=== PATIENT | male | born 1980 | race Caucasian/White ===

== ENCOUNTER 2017-11-02 15:11 | Inpatient (IN) | payer BC ==
[2017-11-02] MEDS ORDERED: Sodium Chloride 0.9% 1,000 ML IV ONE (15:53)
--- NOTE | 2017-11-02 15:53 | ED Physician Chart ---
ED Chief Complaint/HPI - Patient Information Date Seen:: 11/02/17 Time Seen:: 15:25 Chief Complaint:: Fever History of Present Illness:: onset x 2 days of fever, N/V/D x 9; pt denies trauma, H/As, S/T, neck pain, C/P , SOB, cough, Abd. Pain, A/C, chills, or urinary s/s Allergies:: Allergies Allergy/AdvReac Type Severity Reaction Status Date / Time No Known Allergies Allergy Verified 11/02/17 15:34 Vitals:: Vital Signs - 8 hr 11/02/17 15:28 Temp 100.7 F HR 133 RR 16 BP 109/57 O2 Sat % 97 Historian:: Patient Review:: Nurse's Note Reviewed ED Review of Systems - Review of Systems General/Constitutional: Fever, No chills, No weight loss, No weakness, No diaphoresis, No edema, No loss of appetite Skin: No skin lesions, No rash, No bruising Head: No headache, No light-headedness Eyes: No loss of vision, No pain, No diplopia ENT: No earache, No nasal drainage, No sore throat, No tinnitus Neck: No neck pain, No swelling, No thyromegaly, No stiffness, No mass noted Cardio Vascular: No chest pain, No palpitations, No PND, No orthopnea, No edema Pulmonary: No SOB, No cough, No sputum, No wheezing GI: Nausea, Vomiting, Diarrhea, No pain, No melena, No hematochezia, No constipation, No hematemesis G/U: No dysuria, No frequency, No hematuria, No nacturia Musculoskeletal: No bone or joint pain, No back pain, No muscle pain Endocrine: No polyuria, No polydipsia Psychiatric: No prior psych history, No depression, No anxiety, No suicidal ideation, No homicidal ideation, No auditory hallucination, No visual hallucination Hematopoietic: No bruising, No lymphadenopathy Allergic/Immuno: No urticaria, No angioedema Neurological: No syncope, No focal symptoms, No weakness, No paresthesia, No headache, No seizure, No dizziness, No confusion, No vertigo ED Past Medical History - Past Medical History Obtainable: Yes Past Medical History: No significant medical hx Family History: None Social History: Non Smoker, No Alcohol, No Drug Use, Single Surgical History: None Psychiatricy History: None Medication: Reviewed Family Medical History - Family Member Mother History Unknown: Yes ED Physical Exam - Physical Examination General/Constitutional: Awake, Well-developed, well-nourished, Alert, No distress, GCS 15, Non-toxic appearing, Ambulatory Head: Atraumatic Eyes: Lids, conjuctiva normal, PERRL, EOMI Skin: Nl inspection, No rash, No skin lesions, No ecchymosis, Well hydrated, No lymphadenopathy ENMT: External ears, nose nl, TM canals nl, Nasal exam nl, Lips, teeth, gums nl , Oropharynx nl, Tonsils nl Neck: Nontender, Full ROM w/o pain, No JVD, No nuchal rigidity, No bruit, No mass, No stridor Other Neck comments:: supple; no meningeal signs; no cervical tenderness; no bruits Respiratory: Nl effort/Exclusion, Clear to Auscultation, No Wheeze/Rhonchi/Rales Cardio Vascular: RRR, No murmur, gallop, rubs, NL S1 S2, Carotid/Femoral/Distal pulses equal bilaterally GI: No tenderness/rebounding/guarding, No organomegaly, No hernia, Normal BS's, Nondistended, No mass/bruits, No McBurney tenderness, Rectum exam nl Other GI comments:: no pulsatile masses : No CVA tenderness Extremities: No tenderness or effusion, Full ROM, normal strength in all extremities, No edema, Normal digits & nails Neuro/Psych: Alert/oriented, DTR's symmetric, Normal sensory exam, Normal motor strength, Judgement/insight normal, Mood normal, Normal gait, No focal deficits Misc: Normal back, No paraspinal tenderness ED Labs/Radiology/EKG Results - Lab Results Comments:: WBC: 16.6; Na+: 127; BUN: 32; U/A: + Blood; + WBCs/RBCs - Radiology Results Comments:: Hepatomegaly; Splenomegaly; Distended GB; R/O: Appendicitis ED Septic Shock - . Is Septic Shock (SBP<90, OR Lactate>4 mmol\L) present?: No - <6hrs of presentation: Vital Signs: Vital Signs - 8 hr 11/02/18 15:28 Temp 100.7 F HR 133 RR 16 BP 109/57 O2 Sat % 97 ED Reassessment (Disposition) - Reassessment Reassessment Condition:: Improved - Diagnosis Diagnosis:: Dx: N/V/D; AGE; UTI; Hematuria; Hyponatremia; Leukocytosis; Dehydration; R/O: Appendicitis; Cholithiasis; Nephrolithiasis - Aftercare/Follow up Instructions Aftercare/Follow-Up Instructions:: Counseled pt regarding lab results/diagnosis & need follow up, Counseled pt & family regarding lab results/diagnosis & need follow up - Patient Disposition Discharge/Transfer:: Acute Care w/in this hosp Accepting Physician:: Dr. Corona Time Called:: 0119 Time Responded:: 17:15 Admitted to:: Med/Surg Spoke to:: Dr. Corona Admitting Medical Physician:: Dr. Corona Condition at Disposition:: Stable, Improved
[2017-11-02 16:11] LABS: EOSINOPHILE ABSOLUTE 0.1 Th/cmm (0.1-0.4); HEMATOCRIT 48.4 % (41.0-60); HEMOGLOBIN 16.6 gm/dL (12-16); LYMPHOCYTE ABSOLUTE 0.4 Th/cmm (1.5-3.0); MANUAL DIFF REQUIRED? YES; MEAN CELL VOLUME 91.7 fl (80-99); MEAN CORPUSCULAR HEMOGLOBIN 31.6 pg (26.0-30.0); MEAN CORPUSCULAR HGB CONC 34.4 pg (28.0-36.0); MEAN PLATELET VOLUME 7.7 fl; MONOCYTE ABSOLUTE 0.2 Th/cmm (0.3-1.0); NEUTROPHILE ABSOLUTE 15.9 Th/cmm (1.8-8.0); PLATELET COUNT 231 Th/cmm (150-400); RED BLOOD COUNT 5.27 Mil/cmm (4.30-5.70); RED CELL DISTRIBUTION WIDTH 12.1 % (11.5-20.0)
[2017-11-02 16:19] LABS: URINE MICROSCOPIC INDICATED? YES; URINE SOURCE CLEAN C
[2017-11-02 16:20] LABS: WHITE BLOOD COUNT 16.6 Th/cmm (4.8-10.8)
[2017-11-02 16:31] LABS: AMYLASE SERUM 23 U/L (29-103); BUN - UREA NITROGEN 32 mg/dL (7-25); CALCIUM SERUM 9.5 mg/dL (8.6-10.3); CARBON DIOXIDE 18.8 mEq/L (21.0-31.0); CHLORIDE 97 mEq/L (98-107); CREATININE - SERUM 1.2 mg/dL (0.7-1.3); GFR AFRICAN-AMERICAN > 60.0 ml/min (>90); GFR NON AFRICAN-AMERICAN > 60.0 ml/min; GLUCOSE 126 mg/dL (70-105); LIPASE 5 U/L (11-82); POTASSIUM SERUM 3.8 mEq/L (3.5-5.1); SODIUM SERUM 127 mEq/L (136-145)
[2017-11-02 16:39] LABS: URINE BILIRUBIN NEGATIVE (NEGATIVE); URINE BLOOD MODERATE (NEGATIVE); URINE GLUCOSE (UA) NEGATIVE (NEGATIVE); URINE KETONE TRACE mg/dL (NEGATIVE); URINE LEUKOCYTE ESTERASE NEGATIVE (NEGATIVE); URINE NITRATE NEGATIVE (NEGATIVE); URINE PROTEIN 100 mg/dL (NEGATIVE); URINE UROBILINOGEN 0.2 E.U./dL (0.2 - 1.0)
[2017-11-02 16:41] LABS: URINE CLARITY HAZY (CLEAR); URINE COLOR ORANGE
[2017-11-02 16:43] LABS: URINE BACTERIA NONE SEEN /hpf (NONE SEEN); URINE EPITHELIAL CELLS FEW /lpf (FEW)
[2017-11-02] MEDS ORDERED: cefTRIAXone 1 GM in Sodium Chloride 0.9% 50 ML IV ONE (17:16)
[2017-11-02 17:41] LABS: BAND NEUTROPHILE 36 % (0-10); BASOPHIL 0 % (0-3); EOSINOPHIL 0 % (0-5); LYMPHOCYTE 2 % (20-50); MONOCYTE 2 % (2-10); NEUTROPHILS 60 % (40-80); PLATELET ESTIMATE ADEQUATE (NORMAL); PLATELET MORPHOLOGY NORMAL (NORMAL); TOTAL CELLS COUNTED 100
[2017-11-02] MEDS ORDERED: Sodium Chloride 0.9% 1,000 ML IV SCH (20:15)
[2017-11-03 05:31] VITALS: BP 134/71
--- NOTE | 2017-11-03 08:57 | General Progress Note ---
Subjective - Review of Systems Service Date: 11/03/17 Events since last encounter: claims he came in for flu-like symptoms over 2 days, denies abdominal pain labs noted CT scan report raises question of GB stone US ordered Objective - Results Result Diagrams: 11/02/17 15:45 11/02/17 15:45 Recent Labs: Laboratory Last Values WBC 16.6 Th/cmm (4.8-10.8) H 11/02/17 15:45 RBC 5.27 Mil/cmm (4.30-5.70) 11/02/17 15:45 Hgb 16.6 gm/dL (12-16) 11/02/17 15:45 Hct 48.4 % (41.0-60) 11/02/17 15:45 MCV 91.7 fl (80-99) 11/02/17 15:45 MCH 31.6 pg (26.0-30.0) H 11/02/17 15:45 MCHC Differential 34.4 pg (28.0-36.0) 11/02/17 15:45 RDW 12.1 % (11.5-20.0) 11/02/17 15:45 Plt Count 231 Th/cmm (150-400) 11/02/17 15:45 MPV 7.7 fl 11/02/17 15:45 Band Neutrophils % 36 % (0-10) H 11/02/17 15:45 Neutrophils (Manual) 60 % (40-80) 11/02/17 15:45 Lymphocytes 2 % (20-50) L 11/02/17 15:45 Monocytes 2 % (2-10) 11/02/17 15:45 Eosinophils 0 % (0-5) 11/02/17 15:45 Basophils 0 % (0-3) 11/02/17 15:45 Platelet Estimate ADEQUATE (NORMAL) 11/02/17 15:45 Platelet Morphology NORMAL (NORMAL) 11/02/17 15:45 RBC Morph Micro Appear NORMAL (NORMAL) 11/02/17 15:45 Sodium 127 mEq/L (136-145) L 11/02/17 15:45 Potassium 3.8 mEq/L (3.5-5.1) 11/02/17 15:45 Chloride 97 mEq/L (98-107) L 11/02/17 15:45 Carbon Dioxide 18.8 mEq/L (21.0-31.0) L 11/02/17 15:45 Anion Gap 15.0 (7.0-16.0) 11/02/17 15:45 BUN 32 mg/dL (7-25) H 11/02/17 15:45 Creatinine 1.2 mg/dL (0.7-1.3) 11/02/17 15:45 Est GFR ( Amer) > 60.0 ml/min (>90) 11/02/17 15:45 Est GFR (Non-Af Amer) > 60.0 ml/min 11/02/17 15:45 BUN/Creatinine Ratio 26.7 11/02/17 15:45 Glucose 126 mg/dL (70-105) H 11/02/17 15:45 Whole Bld Lactic Acid 1.40 mmol/L (0.60-1.99) 11/02/17 19:20 Calcium 9.5 mg/dL (8.6-10.3) 11/02/17 15:45 Amylase 23 U/L (29-103) L 11/02/17 15:45 Lipase 5 U/L (11-82) L 11/02/17 15:45 Urine Source CLEAN C 11/02/17 15:30 Urine Color ORANGE 11/02/17 15:30 Urine Clarity HAZY (CLEAR) 11/02/17 15:30 Urine pH 6.0 (4.6 - 8.0) 11/02/17 15:30 Ur Specific [place] 1.025 (1.005-1.030) 11/02/17 15:30 Urine Protein 100 mg/dL (NEGATIVE) H 11/02/17 15:30 Urine Glucose (UA) NEGATIVE mg/dL (NEGATIVE) 11/02/17 15:30 Urine Ketones TRACE mg/dL (NEGATIVE) 11/02/17 15:30 Urine Blood MODERATE (NEGATIVE) H 11/02/17 15:30 Urine Nitrate NEGATIVE (NEGATIVE) 11/02/17 15:30 Urine Bilirubin NEGATIVE (NEGATIVE) 11/02/17 15:30 Urine Urobilinogen 0.2 E.U./dL (0.2 - 1.0) 11/02/17 15:30 Ur Leukocyte Esterase NEGATIVE (NEGATIVE) 11/02/17 15:30 Urine RBC 2-5 /hpf (0-5) H 11/02/17 15:30 Urine WBC 2-5 /hpf (0-5) 11/02/17 15:30 Ur Epithelial Cells FEW /lpf (FEW) 11/02/17 15:30 Urine Bacteria NONE SEEN /hpf (NONE SEEN) 11/02/17 15:30 - Physical Exam Vitals and I&O: Vital Signs Temp 98.4 F 11/03/17 04:00 Pulse 85 11/03/17 04:00 Resp 21 11/03/17 04:00 BP 134/71 11/03/17 05:30 Pulse Ox 97 11/03/17 04:00 Intake & Output 11/02/17 11/03/17 11/03/17 18:59 06:59 18:59 Intake Total 2100 Balance 2100 Intake: Intake, IV Amount 2100 Sodium Chloride 0.9% 1, 1000 000 ml @ Wide Open IV . Q0M ONE Rx#:[id number] cefTRIAXone 1 gm In 50 Sodium Chloride 0.9% 50 ml @ 100 mls/hr IV X1 ONE Rx#:[id number] Active Medications: Current Medications Acetaminophen (Tylenol) 650 mg PO Q6H PRN PRN Reason: Fever > 100 Stop: 01/01/18 22:59 Last Admin: 11/02/17 23:19 Dose: 650 mg Ceftriaxone Sodium 1 gm/ (Sodium Chloride) 50 mls @ 100 mls/hr IV Q24HR YAIR Stop: 01/02/18 17:59 Sodium Chloride (Nacl 0.9%) 1,000 mls @ 125 mls/hr IV .Q8H YAIR Stop: 01/01/18 20:14 Last Admin: 11/02/17 23:20 Dose: 125 mls/hr
--- NOTE | 2017-11-03 08:57 | Diagnostic Imaging Report ---
Exam: CT examination abdomen pelvis. HISTORY: Abdominal pain vomiting Total DLP equals 347 CTDI equals 7.6 Findings: Multiple contiguous thin section of the abdomen pelvis obtained from lower thorax to pubic symphysis without the administration of oral or intravenous. No prior studies available comparison. The study demonstrates normal aeration of lung parenchyma the bases. There is evidence for hepatosplenomegaly. The kidneys demonstrate no evidence of obstructive uropathy or nephrolithiasis. The gallbladder is distended. No free fluid is noted. The appendix not visualized there is no evidence for secondary signs of appendicitis. Urinary bladder is distended. No free fluid appreciated. No abnormal adenopathy is noted. Moderate amount of fecal content is noted in the right colon. Several distended small bowel loops suggestive of mild ileus. Bony structures demonstrate no evidence for lytic or blastic changes. IMPRESSION: Somewhat limited examination without the administration of contrast material Mild ileus . No evidence of appendicitis, appendix is not seen. Distended gallbladder. Hepatosplenomegaly.
[2017-11-03 09:16] LABS: MANUAL DIFF REQUIRED? YES; MEAN CELL VOLUME 91.9 fl (80-99); MEAN CORPUSCULAR HEMOGLOBIN 31.3 pg (26.0-30.0); MEAN CORPUSCULAR HGB CONC 34.1 pg (28.0-36.0); MEAN PLATELET VOLUME 7.1 fl; PLATELET COUNT 201 Th/cmm (150-400); RED BLOOD COUNT 4.78 Mil/cmm (4.30-5.70); RED CELL DISTRIBUTION WIDTH 12.5 % (11.5-20.0)
[2017-11-03 09:28] LABS: ALB/GLOB RATIO 1.4 (1.0-1.8); ALBUMIN 3.6 gm/dL (4.2-5.5); ALKALINE PHOSPHATASE 72 U/L (34-104); ANION GAP 9.6 (7.0-16.0); BUN - UREA NITROGEN 19 mg/dL (7-25); CALCIUM SERUM 8.9 mg/dL (8.6-10.3); CARBON DIOXIDE 26.5 mEq/L (21.0-31.0); CHLORIDE 102 mEq/L (98-107); GFR AFRICAN-AMERICAN > 60.0 ml/min (>90); GFR NON AFRICAN-AMERICAN > 60.0 ml/min; GLUCOSE 116 mg/dL (70-105); POTASSIUM SERUM 4.1 mEq/L (3.5-5.1); SGOT 36 U/L (13-39); SGPT/ALT 71 U/L (7-52); SODIUM SERUM 134 mEq/L (136-145); TOTAL PROTEIN,SERUM 6.2 gm/dL (6.0-8.3)
[2017-11-03 09:31] LABS: WHITE BLOOD COUNT 11.1 Th/cmm (4.8-10.8)
[2017-11-03 09:59] LABS: BAND NEUTROPHILE 13 % (0-10); LYMPHOCYTE 10 % (20-50); MONOCYTE 2 % (2-10); NEUTROPHILS 75 % (40-80); PLATELET ESTIMATE ADEQUATE (NORMAL); TOTAL CELLS COUNTED 100
--- NOTE | 2017-11-03 10:07 | History and Physical ---
History of Present Illness - HPI Chief Complaint: Nausea and vomit x 3 days HPI: Patient refer that x 3 days he had nausea and vomit, felling tired and body pain. He came to ER for evaluation and treatment. In ER abdominal CT was done and showed No appendicitis, Distended gallblader and hepatomegaly. Vital Signs: Last Vital Signs Temp 98.4 F 11/03/17 04:00 Pulse 85 11/03/17 04:00 Resp 21 11/03/17 04:00 BP 134/71 11/03/17 05:30 Pulse Ox 97 11/03/17 04:00 Past Medical History Cardiovascular: Report: No Pertinent Hx Pulmonary: Report: No Pertinent Hx SAMPLES AND REPAIRS PREPARER: Report: No Pertinent Hx GI: Report: Other (Vomit and Diarrhea) Psych: Report: No Pertinent Hx Musculoskeletal: Report: No Pertinent Hx Rheumatologic: Report: No pertinent Hx Infectious Disease: Report: No Pertinent Hx Renal/: Report: No Pertinent Hx Endocrine: Report: No Pertinent Hx Dermatology: Report: No Pertinent Hx - Past Surgical History Past Surgical History: No pertinent Hx Family Medical History - Family Member Mother History Unknown: Yes Social History Smoke: No Alcohol: None Drugs: None Lives: With Family Domestic Violence: Negative - Medications Home Medications: Home Medication Medication Instructions Recorded Type NK [No Home Meds] 11/02/17 History - Allergies Allergies/Adverse Reactions: Allergies Allergy/AdvReac Type Severity Reaction Status Date / Time No Known Allergies Allergy Verified 11/02/17 15:34 Review of Systems - Review of Systems Constitutional: Report: Fever, Weakness Eyes: Report: No Significant ENT: Report: No Significant Respiratory: Report: No Significant Cardiovascular: Report: No Significant Gastrointestinal: Report: Nausea, Vomiting Genitourinary: Report: No Significant Musculoskeletal: Report: No Significant Skin: Report: No Significant Neurological: Report: No Significant Physical Exam - Physical Exam HEENT: Report: Ears Nose Throat within normal limits Neck: Report: Within normal limits Cardiovascular Systems: Report: Regular, Rate and Rhythm Respiratory: Report: Breath Sounds are within normal limits Abdomen: Report: Other (Tender at palpation, BS normal.) Back: Report: Inspection of back is within normal limits. Extremities: Report: Non-tender to palpation. Skin: Report: Color of skin is within normal limits Neuro/Psych: Report: Mood affect is within normal limits - Lab Results All Lab Results last 24 hours: Laboratory Results - last 24 hr 11/03/17 11/03/17 09:05 09:05 WBC 11.1 H D RBC 4.78 Hgb 15.0 Hct 44.0 MCV 91.9 MCH 31.3 H MCHC Differential 34.1 RDW 12.5 Plt Count 201 MPV 7.1 Band Neutrophils % 13 H Neutrophils (Manual) 75 Lymphocytes 10 L Monocytes 2 Platelet Estimate ADEQUATE Sodium 134 L Potassium 4.1 Chloride 102 Carbon Dioxide 26.5 Anion Gap 9.6 BUN 19 Creatinine 1.0 Est GFR ( Amer) > 60.0 Est GFR (Non-Af Amer) > 60.0 BUN/Creatinine Ratio 19.0 Glucose 116 H Calcium 8.9 Total Bilirubin 1.0 AST 36 ALT 71 H Alkaline Phosphatase 72 Total Protein 6.2 Albumin 3.6 L Globulin 2.6 Albumin/Globulin Ratio 1.4 - Assessment Assessment: Pqatient is awake, alert, calm, in no acute distress. DX: Nausea and vomiting - Plan Plan: Patient in IV NS, Ceftriaxone, NPO. Awaiting US result and GI eval. Will continue to monitor.
--- NOTE | 2017-11-03 11:28 | Diagnostic Imaging Report ---
Abdominal ultrasound HISTORY: Abdominal distention The liver appears somewhat enlarged (18.4 cm). No focal lesions. The exam of the gallbladder demonstrates a 5 mm intraluminal echogenic density. No associated acoustic shadowing. An atypical calculus cannot be excluded. No biliary dilatation. No abnormality seen in the region of the pancreas. The kidneys appear normal bilaterally. The spleen is generous in size (13.3 cm length). No other retroperitoneal or intra-abdominal abnormalities. IMPRESSION: 1. 5 mm intraluminal echogenic density within the gallbladder without acoustic shadowing. An atypical calculus cannot be excluded. 2. Slight hepatosplenomegaly
[2017-11-03] MEDS ORDERED: cefTRIAXone 1 GM in Sodium Chloride 0.9% 50 ML IV SCH (18:00)
--- NOTE | 2017-11-03 22:24 | Consultation ---
DATE OF CONSULTATION: 11/03/2017 INPATIENT GI CONSULTATION REFERRING PHYSICIAN: Dr. Corona. REASON FOR CONSULTATION: Distended gallbladder. HISTORY: This is a 36-year-old male who was admitted to the hospital because of flu-like symptoms. He had some associated nausea, vomiting, but by the time I am seeing him he feels completely better and wants to go home. He denies having any abdominal pain. He denies having any nausea, vomiting. He denies melena, hematochezia, hematemesis, or coffee-ground emesis. PAST MEDICAL HISTORY: None. PAST SURGICAL HISTORY: None. FAMILY HISTORY: Colon cancer. SOCIAL HISTORY: Denies tobacco, alcohol, or IV drug usage. ALLERGIES: None. CURRENT MEDICATIONS: Tylenol, ceftriaxone, and Flagyl. REVIEW OF SYSTEMS: A 10-point review of system was performed. The pertinent positive was no further nausea, vomiting, flu-like symptoms. All other systems were otherwise negative. PHYSICAL EXAMINATION: VITAL SIGNS: Temperature 97.8, breathing 17, pulse of 82, blood pressure 122/55, and satting 98%. GENERAL: In no apparent distress. EYES: Anicteric. Normal conjunctivae. HEENT: Normocephalic and atraumatic. Moist mucous membranes. NECK: Soft and supple. CHEST: Clear. No effort. CARDIOVASCULAR: Regular rate and rhythm. ABDOMEN: Soft, nontender, and nondistended. Normal bowel sounds. SKIN: Warm and dry. EXTREMITIES: Revealed no cyanosis. PSYCHOLOGIC: Alert and oriented x 3. LABORATORY DATA AND DIAGNOSTIC STUDIES: Show white count 11.1, hemoglobin 15, and platelets 201. Total bilirubin 1, AST is 36, ALT of 71, alk phos is 72, and lipase 5. CT abdomen and pelvis showed mild ileus, no appendicitis, distended gallbladder. Abdominal ultrasound showed 5 mm intraluminal echogenicity within the gallbladder and hepatosplenomegaly. IMPRESSION: A 36-year-old male with distended gallbladder, possibly have gallstones, LFTs are mildly elevated, and also has hepatosplenomegaly. PLAN: 1. Check HIDA scan. 2. Consider cholecystectomy should the patient develop symptoms of gallstones. 3. Consider surveillance imaging of the gallbladder in 3-6 months with his primary care provider. 4. If symptoms were to recur, consider endoscopy and this could also be done as an outpatient. 5. I told the patient to follow up with his PCP. Thank you for allowing me to participate. Please call me if you have any questions. JOB# [id number]
--- NOTE | 2017-11-04 10:58 | Diagnostic Imaging Report ---
Exam: HIDA scan. HISTORY: Pain. Findings: Utilizing 5 mCi technetium 99 M Choletec examination of liver and biliary tree was obtained. The study demonstrates normal uptake of the radiopharmaceutical throughout the liver parenchyma. The gallbladder is visualized at 10 minutes. Progression of the radiopharmaceutical into the common bile duct and small bowel at 15 minutes appreciated. IMPRESSION: Normal HIDA scan.
--- NOTE | 2017-11-05 19:09 | General Progress Note ---
Subjective - Review of Systems Service Date: 11/04/17 Subjective: Patient left AMA Objective - Results Result Diagrams: 11/03/17 09:05 11/03/17 09:05 Recent Labs: Laboratory Last Values WBC 11.1 Th/cmm (4.8-10.8) H D 11/03/17 09:05 RBC 4.78 Mil/cmm (4.30-5.70) 11/03/17 09:05 Hgb 15.0 gm/dL (12-16) 11/03/17 09:05 Hct 44.0 % (41.0-60) 11/03/17 09:05 MCV 91.9 fl (80-99) 11/03/17 09:05 MCH 31.3 pg (26.0-30.0) H 11/03/17 09:05 MCHC Differential 34.1 pg (28.0-36.0) 11/03/17 09:05 RDW 12.5 % (11.5-20.0) 11/03/17 09:05 Plt Count 201 Th/cmm (150-400) 11/03/17 09:05 MPV 7.1 fl 11/03/17 09:05 Band Neutrophils % 13 % (0-10) H 11/03/17 09:05 Neutrophils (Manual) 75 % (40-80) 11/03/17 09:05 Lymphocytes 10 % (20-50) L 11/03/17 09:05 Monocytes 2 % (2-10) 11/03/17 09:05 Eosinophils 0 % (0-5) 11/02/17 15:45 Basophils 0 % (0-3) 11/02/17 15:45 Platelet Estimate ADEQUATE (NORMAL) 11/03/17 09:05 Platelet Morphology NORMAL (NORMAL) 11/02/17 15:45 RBC Morph Micro Appear NORMAL (NORMAL) 11/02/17 15:45 Sodium 134 mEq/L (136-145) L 11/03/17 09:05 Potassium 4.1 mEq/L (3.5-5.1) 11/03/17 09:05 Chloride 102 mEq/L (98-107) 11/03/17 09:05 Carbon Dioxide 26.5 mEq/L (21.0-31.0) 11/03/17 09:05 Anion Gap 9.6 (7.0-16.0) 11/03/17 09:05 BUN 19 mg/dL (7-25) 11/03/17 09:05 Creatinine 1.0 mg/dL (0.7-1.3) 11/03/17 09:05 Est GFR ( Amer) > 60.0 ml/min (>90) 11/03/17 09:05 Est GFR (Non-Af Amer) > 60.0 ml/min 11/03/17 09:05 BUN/Creatinine Ratio 19.0 11/03/17 09:05 Glucose 116 mg/dL (70-105) H 11/03/17 09:05 Whole Bld Lactic Acid 1.40 mmol/L (0.60-1.99) 11/02/17 19:20 Calcium 8.9 mg/dL (8.6-10.3) 11/03/17 09:05 Total Bilirubin 1.0 mg/dL (0.3-1.0) 11/03/17 09:05 AST 36 U/L (13-39) 11/03/17 09:05 ALT 71 U/L (7-52) H 11/03/17 09:05 Alkaline Phosphatase 72 U/L (34-104) 11/03/17 09:05 Total Protein 6.2 gm/dL (6.0-8.3) 11/03/17 09:05 Albumin 3.6 gm/dL (4.2-5.5) L 11/03/17 09:05 Globulin 2.6 gm/dL 11/03/17 09:05 Albumin/Globulin Ratio 1.4 (1.0-1.8) 11/03/17 09:05 Amylase 23 U/L (29-103) L 11/02/17 15:45 Lipase 5 U/L (11-82) L 11/02/17 15:45 Urine Source CLEAN C 11/02/17 15:30 Urine Color ORANGE 11/02/17 15:30 Urine Clarity HAZY (CLEAR) 11/02/17 15:30 Urine pH 6.0 (4.6 - 8.0) 11/02/17 15:30 Ur Specific [place] 1.025 (1.005-1.030) 11/02/17 15:30 Urine Protein 100 mg/dL (NEGATIVE) H 11/02/17 15:30 Urine Glucose (UA) NEGATIVE mg/dL (NEGATIVE) 11/02/17 15:30 Urine Ketones TRACE mg/dL (NEGATIVE) 11/02/17 15:30 Urine Blood MODERATE (NEGATIVE) H 11/02/17 15:30 Urine Nitrate NEGATIVE (NEGATIVE) 11/02/17 15:30 Urine Bilirubin NEGATIVE (NEGATIVE) 11/02/17 15:30 Urine Urobilinogen 0.2 E.U./dL (0.2 - 1.0) 11/02/17 15:30 Ur Leukocyte Esterase NEGATIVE (NEGATIVE) 11/02/17 15:30 Urine RBC 2-5 /hpf (0-5) H 11/02/17 15:30 Urine WBC 2-5 /hpf (0-5) 11/02/17 15:30 Ur Epithelial Cells FEW /lpf (FEW) 11/02/17 15:30 Urine Bacteria NONE SEEN /hpf (NONE SEEN) 11/02/17 15:30 - Physical Exam Vitals and I&O: Vital Signs Temp 98.7 F 11/03/17 20:00 Pulse 69 11/03/17 20:00 Resp 20 11/03/17 20:00 BP 121/65 11/03/17 20:00 Pulse Ox 98 11/03/17 20:00 Assessment/Plan - Assessment Assessment: Pqatient is awake, alert, calm, in no acute distress. DX: Nausea and vomiting - Plan Plan: Patient Left AMA
== END 2017-11-03 21:55 | disposition left against medical advice (07) | DRG 690 ==
LOC: ER 15:11 → MSI 19:41
PROVIDERS: ADMIT General Practice; ATTEND General Practice
DX: N39.0 Urinary tract infection, site not specified (principal); E87.1 Hypo-osmolality and hyponatremia; K52.9 Noninfective gastroenteritis and colitis, unspecified; E86.0 Dehydration; R16.2 Hepatomegaly with splenomegaly, not elsewhere classified; R31.9 Hematuria, unspecified; K80.20 Calculus of gallbladder without cholecystitis without obstruction; N20.0 Calculus of kidney
CPT/HCPCS: 36415-UA; 76700-TC; 78226-TC; 80048-TC; 80053-TC; 81001-TC; 82150-TC; 83605; 83690-TC; 85007-TC; 85025-TC; 85027-TC; 87086-90; 96375; A9537; J0696; J2405; J7030; Z7610